=== PATIENT | female | born 1965 | race Two or more races ===

== ENCOUNTER → 2020-11-03 | Outpatient (CLI) | payer OTHER ==
[~2020-11-03] MED LIST: GABA300C PO; HYDR-826 PO; IPRA15SP NAS; METH500T7 PO; METO50TA4 PO; OMEP20TA62 PO; OXCA300T19 PO; PRAZ2CAP2 PO; TOLT4CAP PO; TRAZ50TA66 PO; VENL75TA PO
[2020-11-03 12:36] LABS: BASOPHILS % (AUTO) 1 % (0-1); EOSINOPHILS % (AUTO) 1 % (1-7); LYMPHOCYTES % (AUTO) 22 % (22-44); MEAN CORPUSCULAR HGB CONC 34.5 g/dL (32.4-35.8); MEAN PLATELET VOLUME 6.7 fL (7.4-10.4); MONOCYTES % (AUTO) 10 % (2-9); NEUTROPHILS % (AUTO) 66 % (42-75); PLATELET COUNT 254 x10^3/uL (130-400); RED BLOOD COUNT 4.75 x10^6/uL (3.82-5.3); RED CELL DISTRIBUTION WIDTH 12.8 % (9.6-15.2)
[2020-11-03 12:39] LABS: MD NO
[2020-11-03 12:48] LABS: INTERNATIONAL NORMALIZED RATIO 0.98 (0.93-1.1); PROTHROMBIN TIME 10.4 Seconds (9.6-11.5)
[2020-11-03 13:18] LABS: ANION GAP 4 mmol/L (5-15); CALCIUM 9.5 mg/dL (8.5-10.1); CHLORIDE 104 mmol/L (98-107); CREATININE 0.68 mg/dL (0.55-1.02)
== END | disposition home or self-care (01) ==
LOC: STAR 10:33
PROVIDERS: ATTEND Orthopaedic Surgery
DX: Z01.810 Encounter for preprocedural cardiovascular examination (principal); Z01.818 Encounter for other preprocedural examination; M17.12 Unilateral primary osteoarthritis, left knee; M25.562 Pain in left knee; R94.31 Abnormal electrocardiogram [ECG] [EKG]; Z20.822 Contact with and (suspected) exposure to COVID-19; Z79.01 Long term (current) use of anticoagulants
CPT/HCPCS: 80048; 83036; 85025; 85610; 85730; 87081; 87635; 93005

== ENCOUNTER 2020-11-09 06:09 | Day surgery (SDC) | payer OTHER ==
[~2020-11-09] VITALS: Ht 152.4 cm; Wt 75.0 kg
[2020-11-09] MEDS ORDERED: TRANEXAMIC ACID 100 MG/ML, 10ML ONE ×2 (06:35)
[2020-11-09] MEDS ORDERED: KETOROLAC 60 MG/2 ML ONE (06:35)
[2020-11-09] MEDS ORDERED: ROPIvacaine/PF 0.5%, 20 ML ONE (06:35)
[2020-11-09] MEDS ORDERED: ROPIvacaine/PF 0.5%, 30 ML ONE ×2 (06:35→08:54)
[2020-11-09] MEDS ORDERED: SODIUM CHLORIDE 0.9% 50 ML ONE (06:36)
[2020-11-09] MEDS ORDERED: VANCOMYCIN 1,000 MG ONE (06:36)
[2020-11-09] MEDS ORDERED: EPINEPHRINE 1 MG/ML, 1ML ONE (06:36)
[2020-11-09] MEDS ORDERED: SENNA/DOCUSATE TABLET PO PRN (07:00)
[2020-11-09] MEDS ORDERED: HYDROmorphone 1 MG/ML, 1ML INJ IV PRN (07:00)
[2020-11-09] MEDS ORDERED: ZOLPIDEM 5MG TABLET PO PRN (07:00)
[2020-11-09] MEDS ORDERED: MAGNESIUM HYDROXIDE 8%, 30ML UDC PO PRN (07:00)
[2020-11-09] MEDS ORDERED: NS + 20MEQ KCL 1,000 ML IV SCH (07:00)
[2020-11-09] MEDS ORDERED: DIPHENHYDRAMINE 50 MG CAPSULE PO PRN (07:00)
[2020-11-09] MEDS ORDERED: BISACODYL 10 MG SUPP PR PRN (07:00)
[2020-11-09] MEDS ORDERED: CEFAZOLIN PMX 2GM/50ML 50 ML IVPB SCH (07:00)
[2020-11-09] MEDS ORDERED: ONDANSETRON 2MG/ML, 2ML IV PRN (07:00)
[2020-11-09] MEDS ORDERED: ACETAMINOPHEN 650 MG/20.3 ML UDC PO PRN (07:00)
[2020-11-09] MEDS ORDERED: ONDANSETRON 4 MG TABLET PO PRN (07:00)
[2020-11-09] MEDS ORDERED: HYDROcodone/APAP 5/325 TABLET PO PRN (07:00)
[2020-11-09] MEDS ORDERED: OXYcodone IR 5MG TABLET PO PRN (07:00)
[2020-11-09] MEDS ORDERED: CHLORHEXIDINE 15 ML UDC ONE (07:22)
[2020-11-09] MEDS ORDERED: ACETAMINOPHEN 500 MG TABLET PO ONE (07:30)
[2020-11-09] MEDS ORDERED: CHLORHEXIDINE 15 ML UDC MM ONE (07:30)
[2020-11-09] MEDS ORDERED: LACTATED RINGERS 1,000 ML IV SCH (07:30)
[2020-11-09] MEDS ORDERED: GABAPENTIN 300 MG CAPSULE PO ONE (07:30)
[2020-11-09] MEDS ORDERED: MIDAZOLAM 1 MG/ML, 2ML ONE (08:37)
[2020-11-09] MEDS ORDERED: FENTANYL PF 250 MCG/5ML ONE (08:37)
[2020-11-09] MEDS ORDERED: DEXAMETHASONE 4 MG/ML, 5ML ONE (08:38)
[2020-11-09] MEDS ORDERED: PROPOFOL 10 MG/ML, 20ML ONE (08:45)
[2020-11-09] MEDS ORDERED: SUCCINYLCHOLINE 20 MG/ML, 10ML ONE (08:45)
[2020-11-09] MEDS ORDERED: CEFAZOLIN 1,000 MG ONE ×2 (08:45→08:51)
[2020-11-09] MEDS ORDERED: ROCURONIUM 10MG/ML,5ML ONE (08:45)
[2020-11-09] MEDS ORDERED: VENLAFAXINE 75MG TABLET PO SCH (09:00)
[2020-11-09] MEDS ORDERED: TOLTERODINE LA 4MG CAP.ER.24H PO SCH (09:00)
[2020-11-09] MEDS ORDERED: DOCUSATE 100 MG CAPSULE PO SCH (09:00)
[2020-11-09] MEDS ORDERED: METOPROLOL SUCCINATE 50 MG TAB.ER.24H PO SCH (09:00)
[2020-11-09] MEDS ORDERED: GABAPENTIN 300 MG CAPSULE PO SCH (09:00)
[2020-11-09] MEDS ORDERED: METHOCARBAMOL 500 MG TABLET PO SCH (09:00)
[2020-11-09] MEDS ORDERED: LABETALOL 5MG/ML, 20ML IV PRN (09:30)
[2020-11-09] MEDS ORDERED: PROMETHAZINE 12.5 MG SUPP PR PRN (09:30)
[2020-11-09] MEDS ORDERED: ONDANSETRON 2MG/ML, 2ML IVPush PRN (09:30)
[2020-11-09] MEDS ORDERED: MIDAZOLAM 1 MG/ML, 2ML IV PRN (09:30)
[2020-11-09] MEDS ORDERED: DIPHENHYDRAMINE 50 MG/ML, 1ML IVPush PRN ×2 (09:30)
[2020-11-09] MEDS ORDERED: MEPERIDINE/PF 25MG/0.5ML IVPush PRN (09:30)
[2020-11-09] MEDS ORDERED: hydrALAzine 20 MG/ML, 1ML IV PRN (09:30)
[2020-11-09] MEDS ORDERED: PROMETHAZINE 25 MG/ML, 1ML IVPush PRN (09:30)
[2020-11-09] MEDS ORDERED: EPHEDRINE 50 MG/ML, 1ML IVPush PRN (09:30)
[2020-11-09] MEDS ORDERED: OXYcodone 5 MG/5 ML ORAL.SOL UDC PO PRN (09:30)
[2020-11-09] MEDS ORDERED: DIAZEPAM 5 MG/ML, 2ML IVPush PRN (09:30)
[2020-11-09] MEDS ORDERED: HYDROmorphone 1 MG/ML, 1ML INJ IVPush PRN (09:30)
[2020-11-09] MEDS ORDERED: ALBUTEROL SULFATE 2.5 MG/3 ML NPPB PRN (09:30)
[2020-11-09] MEDS ORDERED: ONDANSETRON 2MG/ML, 2ML ONE ×2 (09:38)
[2020-11-09] MEDS ORDERED: SUGAMMADEX 200 MG/2 ML IVPush ONE (09:38)
[2020-11-09] MEDS ORDERED: ALBUTEROL HFA 90 MCG/SPRAY ONE (10:14)
[2020-11-09] MEDS ORDERED: FENTANYL PF 100 MCG/2ML ONE ×2 (10:18→11:00)
[2020-11-09] MEDS: FENTANYL PF 100 MCG/2ML IV PRN ×3 (10:19→11:01)
[2020-11-09] MEDS ORDERED: OXYcodone 5 MG/5 ML ORAL.SOL UDC ONE (10:41)
[2020-11-09] MEDS ORDERED: ALBUTEROL HFA 90 MCG/SPRAY INH PRN (11:00)
[2020-11-09] MEDS ORDERED: ASPIRIN 81 MG TABLET EC PO SCH (18:00)
[2020-11-09] MEDS ORDERED: PRAZOSIN 2 MG CAPSULE PO SCH (21:00)
[2020-11-10] MEDS ORDERED: DEXAMETHASONE 4 MG/ML, 1ML IVPush SCH (06:00)
== END 2020-11-09 15:00 | disposition home or self-care (01) ==
LOC: OUT 06:09
PROVIDERS: ATTEND Orthopaedic Surgery
DX: M17.12 Unilateral primary osteoarthritis, left knee (principal); T84.89XA Other specified complication of internal orthopedic prosthetic devices, implants and grafts, initial encounter; M25.762 Osteophyte, left knee; G89.18 Other acute postprocedural pain; I10 Essential (primary) hypertension; J44.9 Chronic obstructive pulmonary disease, unspecified; F41.9 Anxiety disorder, unspecified; Z79.899 Other long term (current) drug therapy; Z87.891 Personal history of nicotine dependence; Z88.2 Allergy status to sulfonamides; Z88.8 Allergy status to other drugs, medicaments and biological substances; Z82.61 Family history of arthritis; Z82.49 Family history of ischemic heart disease and other diseases of the circulatory system; Y83.8 Other surgical procedures as the cause of abnormal reaction of the patient, or of later complication, without mention of misadventure at the time of the procedure
CPT/HCPCS: 27447; 64447; 97110; 97161; 97165; 97535; C1713; C1776; J0171; J0330; J0690; J1100; J1885; J2250; J2405; J2704; J2795; J3010; J3370; J7120